=== PATIENT | male | born 1985 | race Caucasian/White ===

== ENCOUNTER 2017-05-18 20:36 | Emergency (ER) | payer OTHER ==
[2017-05-18 21:13] VITALS: TEMP 98.2; O2SAT 98
--- NOTE | 2017-05-18 21:58 | RAD ---
EXAM DESCRIPTION: X-RAY left Hand CLINICAL HISTORY: Trauma to the left hand COMPARISON: None TECHNIQUE: 3.0 views of the left hand. FINDINGS: There is a small avulsion fracture fragment seen on the lateral projection at the base of the metacarpal bones/along the dorsal surface of the distal carpal bones The joint spaces of the hand and wrist are relatively well preserved. There are no periosteal reactions. The adjacent soft tissues are unremarkable. IMPRESSION: There is a small avulsion fracture fragment seen on the lateral projection at the base of the metacarpal bones/along the dorsal surface of the distal carpal bones. The exact donor site of this fracture fragment is uncertain. This finding can be further assessed with a dedicated CT of the left hand/wrist Electronically signed by: Gonzalez Hammer MD 05/18/2017 9:57 PM CDT Workstation: [id number]
--- NOTE | 2017-05-18 22:22 | ED.PDOC ---
History of Present Illness - General Chief Complaint: Upper Extremity Injury Stated Complaint: left hand injury Time Seen by Provider: 05/18/17 21:53 Source: patient Exam Limitations: no limitations - History of Present Illness Initial Comments: Pavan Mims 31 y/o male stated that he punch the door jamb at his house tonight with sharp pain and swelling of his left hand after incident.Denies any other injuries. Occurred: just prior to arrival, this evening Pain - Upper Extremity: moderate: Hand, left Method of Injury: other - see hpi Improving Factors: rest Worsening Factors: movement Associated Symptoms: pain Allergies/Adverse Reactions: Allergies NO KNOWN ALLERGY Allergy (Verified 08/28/15 11:54) Home Medications: Ambulatory Orders Cephalexin 1,000 mg PO BID #30 cap 05/18/17 Review of Systems - Review of Systems Constitutional: States: no symptoms reported EENTM: States: no symptoms reported Respiratory: States: no symptoms reported Cardiology: States: no symptoms reported Musculoskeletal: States: see HPI All other Systems: Reviewed and Negative, No Change from Baseline Past Medical History (General) - Patient Medical History Hx Seizures: No Hx Stroke: No Hx Cardiac Disorders: No Hx Congestive Heart Failure: No Hx Diabetes: No Surgical History: other - Orif Fx right forearm - Vaccination History Hx Tetanus, Diphtheria Vaccination: Yes - 2017 Hx Influenza Vaccination: No Hx Pneumococcal Vaccination: No - Social History Hx Tobacco Use: Yes Hx Alcohol Use: Yes Hx Substance Use: Yes Hx Physical Abuse: No Hx Emotional Abuse: No - Triage Comment ED Triage Comment: hit wood stud with left hand Family Medical History - Family History Mother Living Status: Hx Family Congestive Heart Failure: Yes Physical Exam - Physical Exam General Appearance: Alert, Comfortable, No apparent distress Eyes, Ears, Nose, Throat Exam: normal ENT inspection Neck: non-tender, supple Cardiovascular/Respiratory: regular rate, rhythm, no M/R/G, normal peripheral pulses Abdominal Exam: non-tender, no organomegaly Back Exam: no CVA tenderness, no vertebral tenderness Shoulder Exam: normal inspection, non-tender Elbow/Forearm Exam: normal inspection, non-tender, normal ROM Wrist Exam: limited ROM - painful Hand Exam: bone tenderness - left hand, limited ROM - finger flexion left hand due to swelling, soft tissue tenderness, swelling - left hand Neuro/Tendon: normal sensation, normal motor functions, normal tendon functions , responds to pain Mental Status: alert, oriented x 3 Skin Exam: normal color, warm/dry, other - superficial non bleeding abrasion left hand Progress - Progress Progress: 05/18/17 22:26 Vital Signs - 8 hr 05/18/17 21:09 Temperature 98.2 F Pulse Rate [ 120 H Left] Respiratory 18 Rate Blood Pressure 138/101 [Right Arm] O2 Sat by Pulse 98 Oximetry - EKG/XRAY/CT XRAY: hand - tiny avulsion fracture left hand unknown source Departure - Departure Clinical Impression: Fracture of hand Qualifiers: Encounter type: initial encounter Fracture type: closed Laterality: left Qualified Code(s): S62.92XA - Unspecified fracture of left wrist and hand, initial encounter for closed fracture Time of Disposition: 22:28 Disposition: Discharge to Home or Self Care Condition: Good Departure Forms: ED Discharge - Pt. Copy, Patient Portal Self Enrollment Instructions: DI for a Hand Fracture Prescriptions: Cephalexin 1,000 mg PO BID #30 cap Home Medications: Ambulatory Orders Cephalexin 1,000 mg PO BID #30 cap 05/18/17 Additional Instructions: Follow up with primary Md 05/21-[facility] [phone];Ice pack to affected area 20 minutes 3 x a day DURING WAKING HOURS ONLY FOR 5 days as needed;Elevate left hand 20 degrees at bedtime;May take ALEVE (OTC) 1-2 tablets am/pm for pain swelling
[2017-05-18] MEDS ORDERED: HYDROCOD/APAP 7.5/325 (ER DISP) #3 TAB PO ONE (22:29)
[2017-05-18] MEDS ORDERED: CEPHALEXIN MONOHYDRATE 500 MG CAP PO ONE (22:33)
[2017-05-18 23:00] VITALS: BP 132/97
== END 2017-05-18 23:00 | disposition home or self-care (01) ==
LOC: ER 20:36
DX: S62.92XA Unspecified fracture of left hand, initial encounter for closed fracture (principal); W22.09XA Striking against other stationary object, initial encounter; Y92.009 Unspecified place in unspecified non-institutional (private) residence as the place of occurrence of the external cause